=== PATIENT | female | born 1955 ===

== ENCOUNTER 2017-12-21 17:47 | Emergency (ER) | payer OTHER ==
[2017-12-21 17:59] VITALS: PULSE 78; RESP 18; TEMP 98.2; O2SAT 98
[2017-12-21] MEDS ORDERED: Naproxen 500 MG TAB PO STA (18:42)
[2017-12-21] MEDS ORDERED: Naproxen 500 MG TAB PO ONE (18:51)
--- NOTE | 2017-12-21 18:51 | ED PDOC ---
HPI: General Adult Time Seen by Provider: 12/21/17 18:05 Chief Complaint (Nursing): Back Pain Chief Complaint (Provider): Back/Hip Pain History Per: Patient History/Exam Limitations: no limitations Onset/Duration Of Symptoms: Other (x 4 weeks) Current Symptoms Are (Timing): Still Present Additional Complaint(s): 62-year-old female presents to ED for evaluation of R lower back and R hip pain s/p fall 4 weeks ago. Pt states at the time of fall, pt was rushing to meet a friend when she tripped and landed on her R hip. Pt states she was not evaluated at the time of injury. Pt reports she was managing her symptoms at home with ibuprofen 400 mg, last dose taken yesterday morning w/o relief. Pt reports pain worsens with movements and ambulation. Denies any hx of hip or back injury prior to fall. Denies any other complaints at present. Patient also denies head injury or LOC during the fall. PMD: No Provider Past Medical History Reviewed: Historical Data, Nursing Documentation, Vital Signs Vital Signs: Last Vital Signs Temp 98.2 F 12/21/17 17:57 Pulse 78 12/21/17 17:57 Resp 18 12/21/17 17:57 BP Pulse Ox 98 12/24/17 11:56 - Medical History Other PMH: pre-diabetes - Surgical History Surgical History: No Surg Hx - Family History Family History: States: Unknown Family Hx - Social History Current smoker - smoking cessation education provided: No Alcohol: Social Drugs: Denies - Home Medications Home Medications: Ambulatory Orders Medication Instructions Recorded Acetaminophen [Acetaminophen 8 650 mg PO Q8 #14 tablet.er 12/21/17 Hour] Meloxicam [Mobic] 15 mg PO DAILY #10 tab 12/21/17 - Allergies Allergies/Adverse Reactions: Allergies Allergy/AdvReac Type Severity Reaction Status Date / Time No Known Allergies Allergy Verified 12/21/17 17:57 Review of Systems ROS Statement: Except As Marked, All Systems Reviewed And Found Negative Constitutional: Negative for: Fever Cardiovascular: Negative for: Chest Pain Respiratory: Negative for: Shortness of Breath Gastrointestinal: Negative for: Nausea, Vomiting, Abdominal Pain Genitourinary Female: Negative for: Dysuria, Frequency, Incontinence, Other ( incontinence) Musculoskeletal: Positive for: Other (R lower back pain, R hip pain) Neurological: Negative for: Weakness, Numbness Physical Exam - Reviewed Nursing Documentation Reviewed: Yes Vital Signs Reviewed: Yes - Physical Exam Appears: Positive for: Well, Non-toxic, No Acute Distress Head Exam: Positive for: ATRAUMATIC, NORMOCEPHALIC Skin: Positive for: Normal Color, Warm, Dry Eye Exam: Positive for: EOMI, PERRL ENT: Positive for: Other (Mucus membranes moist. Airway patent, (-) stridor) Neck: Positive for: Painless ROM, Supple Cardiovascular/Chest: Positive for: Regular Rate, Rhythm Respiratory: Positive for: Normal Breath Sounds (respirations even and nonlabored, speaking in full sentences.). Negative for: Respiratory Distress Gastrointestinal/Abdominal: Positive for: Soft. Negative for: Tenderness, Distended, Guarding Back: Positive for: Other (right paralumbar tenderness (+) right sided sciatic notch tenderness). Negative for: L CVA Tenderness, R CVA Tenderness, Vertebral Tenderness Extremity: Positive for: Tenderness (to lateral and posterior aspects of right hip, ROM intact with pain on flexion. (-) ecchymosis (-) swelling (-) erythema ( -) warmth). Negative for: Pedal Edema, Calf Tenderness, Deformity Neurologic/Psych: Positive for: Alert, Oriented, Gait ((+) Ambulatory to ED with steady gait) - ECG O2 Sat by Pulse Oximetry: 98 (RA) Pulse Ox Interpretation: Normal Medical Decision Making Medical Decision Makin-year-old female with acute back and hip pain s/p fall Plan: - Naproxen 500 mg PO - Tylenol 650 mg PO - Hip Min 4V with Pelvis Right X-Ray - Re-evaluation 2030 Hip XR: (-) fracture (-) dislocation as read by Sarah Beth HENDERSON Patient advised that official radiology read of XR is still pending and will call the patient if there is any discrepancy within 24 hours. On re-evaluation, patient reports improvement of symptoms. On exam, patient remains AAOx3, in no acute distress. Neck is supple, lungs CTA, cardiac RRR, abdomen is soft and non-tender, neuro exam shows no focal findings. VSS, stable for discharge. Diagnostic results d/w the patient in great detail. Dx of acute hip and back pain s/p fall d/w the patient. Based on history, exam and diagnostic results plan will be for discharge and outpatient follow up. Advised to follow up with primary care physician/clinic/ortho in 1-2 days without fail. Advised to take medication as prescribed. Return to the emergency room at any time for any new or worsening symptoms. Patient states she fully agrees with and understands discharge instructions. States that she agrees with the plan and disposition. Verbalized and repeated discharge instructions and plan. I have given the patient opportunity to ask any additional questions. Scribe Attestation: Documented by Michael Loyola, acting as a scribe for Lyudmila Burleson PA-C. Provider Scribe Attestation: All medical record entries made by the Scribe were at my direction and personally dictated by me. I have reviewed the chart and agree that the record accurately reflects my personal performance of the history, physical exam, medical decision making, and the department course for this patient. I have also personally directed, reviewed, and agree with the discharge instructions and disposition. Disposition - Clinical Impression Clinical Impression: Low back pain, Hip pain, acute, Fall - Patient ED Disposition Is Patient to be Admitted: No Counseled Patient/Family Regarding: Studies Performed, Diagnosis, Need For Followup, Rx Given - Disposition Referrals: [facility] [Outside] Robert Duggan III, MD [Staff Provider] - Disposition: Routine/Home Disposition Time: 20:32 Condition: STABLE Additional Instructions: FOLLOW UP WITH CLINIC/ORTHO IN 1-2 DAYS FOR FURTHER EVALUATION. RETURN TO ED WITH ANY NEW OR WORSENING SYMPTOMS. Prescriptions: Acetaminophen [Acetaminophen 8 Hour] 650 mg PO Q8 #14 tablet.er Meloxicam [Mobic] 15 mg PO DAILY #10 tab Instructions: Low Back Pain in Adults, Preventing Falls in the Older Adult, Hip Pain in Older People, Hip Pain Forms: [employer] (Syrian) Print Language: TURKISH - POA Present On Arrival: Falls Or Trauma (1 MONTH AGO)
--- NOTE | 2017-12-22 10:35 | RAD ---
PROCEDURE: Right Hip Radiographs. HISTORY: S/P FALL COMPARISON: None. FINDINGS: BONES: No acute fracture JOINTS: Normal. SOFT TISSUES: Normal. OTHER FINDINGS: None. IMPRESSION: No demonstrated fracture or dislocation.
== END 2017-12-21 20:40 | disposition home or self-care (01) ==
LOC: H.ER 17:47
DX: M54.5 Low back pain (principal); M25.551 Pain in right hip; W19.XXXA Unspecified fall, initial encounter; Y92.89 Other specified places as the place of occurrence of the external cause; R73.03 Prediabetes